=== PATIENT | female | born 1960 | race Two or more races ===

== ENCOUNTER → 2025-07-19 | Outpatient (CLI) | payer MEDICAID, SELFPAY ==
--- NOTE | 2025-07-19 15:30 | XR_ITS ---
Examination: Breast ultrasound, unilateral, left Date and time of exam: July 19, 2025, 1537 hours INDICATIONS: Mammogram 05/08/2024 8 mm focal asymmetry below the nipple level MLO view Technique: Real-time betancur scale ultrasonographic imaging performed left breast axillary and retroareolar region FINDINGS: 4:00 cyst 5 x 4 mm 7:00 nodule circumscribed 7 x 5 mm IMPRESSION: BI-RADS Category 3: Probably benign findings Recommend 1 additional 6-month left breast sonogram follow-up to document stability of 7:00 nodule described above
--- NOTE | 2025-07-19 16:00 | XR_ITS ---
Examination: Diagnostic digital mammography, bilateral Computer aided detection 3-D breast Tomosynthesis, bilateral Date and time of exam:. 07/19/2025, 4:11 p.m. Comparisons: None February 2015 through January 2024 Indications: Left breast pain Technique: Nonmagnified MLO, CC views of the breasts to been obtained, reconstructed from 3-D Tomosynthesis images. R2 computer aided detection program utilized for evaluation of suspicious masses and/or abnormal calcifications. 3-D Tomosynthesis images obtained. Findings: The breasts are heterogeneously dense, which may obscure small masses.. No evidence of abnormal masses or suspicious calcifications. Impression: BI-RADS category 1: Negative findings (within normal) Recommend 1 year follow-up mammogram
== END | disposition home or self-care (01) ==
PROVIDERS: PCP Nurse Practitioner Women's Health; Referring Provider Nurse Practitioner Women's Health; Visit Provider Nurse Practitioner Women's Health
DX: R92.313 Mammographic fatty tissue density, bilateral breasts (principal); N63.24 Unspecified lump in the left breast, lower inner quadrant
CPT/HCPCS: 76641; 77062; 77066; G0279